=== PATIENT | female | born 1955 | race Caucasian/White ===

== ENCOUNTER 2024-09-05 08:51 | Outpatient (CLI) | payer MEDICARE ==
[2024-09-05] MEDS ORDERED: Iopamidol 370 76% 100 ML VIAL ONE (12:25)
== END 2024-09-05 08:52 | disposition home or self-care (01) ==
LOC: CT 08:51
PROVIDERS: ATTEND Urology
DX: R31.0 Gross hematuria (principal); N13.2 Hydronephrosis with renal and ureteral calculous obstruction
CPT/HCPCS: 36415; 74178; 82565